=== PATIENT | female | born 1995 | race Caucasian/White ===

== ENCOUNTER → 2020-07-02 23:03 | Observation (INO) ==
[2020-07-02 22:27] LABS: Basophils % 0.5 %; Eosinophils # 0.1 K/mcL (0.0-0.6); Eosinophils % 0.8 %; Hematocrit 32.6 % (35.3-44.9); Hemoglobin 10.3 g/dL (11.5-15.4); Immature Granulocytes % 0.8 % (0-4); Lymphocytes # 1.7 K/mcL (0.6-4.6); Lymphocytes % 25.8 %; Mean Corpuscular HGB Conc 31.6 g/dL (31.6-35.5); Mean Corpuscular Hemoglobin 25.8 pg (28.0-33.3); Mean Corpuscular Volume 81.5 fL (83.0-100.0); Monocytes # 0.6 K/mcL (0.0-1.3); Monocytes % 8.9 %; Neutrophils # 4.1 K/mcL (1.6-8.9); Nucleated Red Blood Cells 0.5 /100 WBC (0); Platelet Count 162 K/mcL (140-400); Segmented Neutrophils % 63.2 %; White Blood Count 6.5 K/mcL (4.3-11.1)
[2020-07-02 22:36] LABS: Protein/Creatinine Ratio,Urine 0.19 mg/mg (0.00-0.20)
[2020-07-02 22:47] LABS: Alanine Aminotransferase 12 Units/L (7-52); Aspartate Amino Transferase 17 Units/L (13-39); BUN/Creatinine Ratio 12 (6-26); Blood Urea Nitrogen 6 mg/dL (6-20); Lactate Dehydrogenase 179 Units/L (140-271); Uric Acid 5.3 mg/dL (2.3-7.6); eGFR For African Americans > 60 (> 60); eGFR For Non-African Americans > 60 (> 60)
== END | disposition home or self-care (01) ==
LOC: 1NENULAB
PROVIDERS: ADMIT Obstetrics & Gynecology; ATTEND Obstetrics & Gynecology

== ENCOUNTER 2020-07-13 10:00 | Inpatient (IN) ==
[2020-07-13] MEDS ORDERED: Naloxone 0.4 MG/ML INJ IVP PRN ×2 (10:40→18:07)
[2020-07-13] MEDS ORDERED: Ondansetron 4 MG/2 ML VIAL IVP PRN ×2 (10:40→18:07)
[2020-07-13] MEDS ORDERED: Lidocaine 1% 20 ML MDV INFILT PRN (10:40)
[2020-07-13] MEDS ORDERED: Azithromycin 500 MG in 0.9 % Sodium Chloride 250 ML IVPB ONE (10:40)
[2020-07-13] MEDS ORDERED: *HR* FentaNYL (PF) 100 MCG/2 ML VIAL IVP PRN (10:40)
[2020-07-13] MEDS ORDERED: Metoclopramide 10 MG/2 ML VIAL IVP PRN ×2 (10:40→18:07)
[2020-07-13] MEDS ORDERED: Famotidine 20 MG/2 ML VIAL IVP PRN (10:40)
[2020-07-13] MEDS ORDERED: Oxytocin 20 units/ LR 1000 mL 20 UNIT/1,000 ML BAG IVC ONE (11:08)
[2020-07-13] MEDS ORDERED: Metoclopramide 10 MG/2 ML VIAL IVP ONE (11:08)
[2020-07-13] MEDS ORDERED: Famotidine 20 MG/2 ML VIAL IVP ONE (11:08)
[2020-07-13] MEDS ORDERED: CeFAZolin 2,000 MG/50 ML BAG IVPB ONE (11:08)
[2020-07-13] MEDS ORDERED: Ringers Solution, Lactated 1,000 ML IVC SCH ×2 (11:15→18:07)
[2020-07-13] MEDS: Ringers Solution, Lactated 1,000 ML IVC SCH ×2 (11:32→13:27)
[2020-07-13 11:40] LABS: Basophils % 0.4 %; Eosinophils % 0.5 %; Hematocrit 38.8 % (35.3-44.9); Hemoglobin 12.2 g/dL (11.5-15.4); Immature Granulocytes % 0.5 % (0-4); Lymphocytes # 1.5 K/mcL (0.6-4.6); Lymphocytes % 20.4 %; Mean Corpuscular HGB Conc 31.4 g/dL (31.6-35.5); Mean Corpuscular Hemoglobin 26.1 pg (28.0-33.3); Mean Corpuscular Volume 82.9 fL (83.0-100.0); Mean Platelet Volume 10.8 fL (9.4-12.4); Monocytes # 0.6 K/mcL (0.0-1.3); Monocytes % 7.8 %; Neutrophils # 5.2 K/mcL (1.6-8.9); Platelet Count 152 K/mcL (140-400); Red Blood Count 4.68 M/mcL (3.82-4.97); Red Cell Distribution Width 18.5 % (11.5-14.5); Segmented Neutrophils % 70.4 %; White Blood Count 7.4 K/mcL (4.3-11.1)
[2020-07-13 11:49] LABS: Amphetamine Screen,Urine Negative ng/mL (Cutoff=1000); Barbiturate Screen,Urine Negative ng/mL (Cutoff=200); Benzodiazepines Screen,Urine Negative ng/mL (Cutoff=200); Cannabinoid Screen,Urine Negative ng/mL (Cutoff = 50); Cocaine Screen,Urine Negative ng/mL (Cutoff= 300); Opiate Screen,Urine Negative ng/mL (Cutoff=300); Phencyclidine Screen,Urine Negative ng/mL (Cutoff=25)
[2020-07-13] MEDS ORDERED: *HR* Promethazine 25 MG/ML VIAL IVP PRN (12:09)
[2020-07-13] MEDS ORDERED: *HR* Labetalol 20 MG/4 ML SYRINGE IVP PRN (12:09)
[2020-07-13] MEDS ORDERED: *HR* HYDROmorphone PF 0.5 MG/0.5 ML SYRINGE IVP PRN (12:09)
[2020-07-13] MEDS ORDERED: *HR* FentaNYL (PF) 100 MCG/2 ML VIAL ONE (12:50)
[2020-07-13] MEDS ORDERED: *HR* Midazolam HCl 2 MG/2 ML VIAL ONE (12:50)
[2020-07-13] MEDS ORDERED: *HR* Morphine Sulfate/PF 10 MG/10 ML AMPUL ONE (12:50)
[2020-07-13] MEDS ORDERED: Ringers Solution, Lactated 1,000 ML ONE (12:51)
[2020-07-13] MEDS ORDERED: EPHEDrine 50 MG/ML VIAL ONE (12:51)
[2020-07-13] MEDS ORDERED: Dexamethasone 4 MG/ML VIAL ONE (12:53)
[2020-07-13] MEDS ORDERED: Ondansetron 4 MG/2 ML VIAL ONE (12:53)
[2020-07-13 13:34] LABS: Alanine Aminotransferase 13 Units/L (7-52); Aspartate Amino Transferase 19 Units/L (13-39); BUN/Creatinine Ratio 9 (6-26); Blood Urea Nitrogen 6 mg/dL (6-20); Lactate Dehydrogenase 232 Units/L (140-271); Uric Acid 6.2 mg/dL (2.3-7.6); eGFR For African Americans > 60 (> 60); eGFR For Non-African Americans > 60 (> 60)
[2020-07-13] MEDS ORDERED: Ketorolac 30 MG/ML VIAL ONE (13:39)
[2020-07-13 13:46] LABS: Creatinine,Urine 147 mg/dL; Protein/Creatinine Ratio,Urine 0.14 mg/mg (0.00-0.20)
[2020-07-13] MEDS ORDERED: *HR* Oxytocin 10 UNIT/ML VIAL IM ONE ×2 (14:23→14:25)
[2020-07-13] MEDS ORDERED: Simethicone 80 MG TAB.CHEW PO PRN (18:07)
[2020-07-13] MEDS ORDERED: *HR* OxyCODONE/APAP 5/325 TABLET PO PRN (18:07)
[2020-07-13] MEDS ORDERED: Sennosides 8.6 MG TABLET PO PRN (18:07)
[2020-07-13] MEDS ORDERED: Rho Immune Globulin 1,500 UNIT SYRINGE IM ONE (18:07)
[2020-07-13] MEDS ORDERED: *HR* OxyCODONE/APAP 10/325 TABLET PO PRN (18:07)
[2020-07-13] MEDS: Ibuprofen 600 MG TABLET PO PRN (18:37)
[2020-07-13] MEDS: cephALEXin 500 MG CAPSULE PO SCH (20:10)
[2020-07-13] MEDS: metroNIDAZOLE 500 MG TABLET PO SCH (20:10)
[2020-07-13] MEDS: Oxytocin 20 units/ LR 1000 mL 20 UNIT/1,000 ML BAG IVC SCH (23:29)
[2020-07-13] MEDS: Acetaminophen 325 MG TABLET PO SCH (23:35)
[2020-07-14] MEDS: Ibuprofen 600 MG TABLET PO PRN ×4 (02:04→20:04)
[2020-07-14] MEDS ORDERED: Ringers Solution, Lactated 500 ML IVC ONE (02:13)
[2020-07-14] MEDS: Prenatal Vit/FA 1 EACH TABLET PO SCH (07:58)
[2020-07-14] MEDS: metroNIDAZOLE 500 MG TABLET PO SCH ×3 (07:58→20:03)
[2020-07-14] MEDS: Acetaminophen 325 MG TABLET PO SCH ×3 (07:59→18:04)
[2020-07-14] MEDS: Oxytocin 20 units/ LR 1000 mL 20 UNIT/1,000 ML BAG IVC SCH (08:07)
[2020-07-14] MEDS ORDERED: NON-FORMULARY MEDICATION 1 EACH EACH (Ferrous Sulfate 1 TAB) PO SCH (09:00)
[2020-07-14] MEDS ORDERED: NON-FORMULARY MEDICATION 1 EACH EACH (Prenatal Caplet 1 TAB) PO SCH (09:00)
[2020-07-14 09:15] LABS: Basophils % 0.2 %; Eosinophils % 0.1 %; Hematocrit 30.5 % (35.3-44.9); Immature Granulocytes % 0.6 % (0-4); Lymphocytes % 22.6 %; Mean Corpuscular HGB Conc 31.5 g/dL (31.6-35.5); Mean Corpuscular Hemoglobin 25.9 pg (28.0-33.3); Mean Corpuscular Volume 82.2 fL (83.0-100.0); Mean Platelet Volume 10.8 fL (9.4-12.4); Monocytes # 0.7 K/mcL (0.0-1.3); Monocytes % 7.7 %; Platelet Count 130 K/mcL (140-400); Red Blood Count 3.71 M/mcL (3.82-4.97); Red Cell Distribution Width 18.2 % (11.5-14.5); Segmented Neutrophils % 68.8 %; White Blood Count 8.7 K/mcL (4.3-11.1)
[2020-07-14] MEDS: cephALEXin 500 MG CAPSULE PO SCH ×4 (09:23→20:02)
[2020-07-14 09:24] LABS: Hemoglobin 9.6 g/dL (11.5-15.4)
[2020-07-14] MEDS ORDERED: Rho Immune Globulin 1,500 UNIT SYRINGE IM ONE (13:58)
[2020-07-15] MEDS: Ibuprofen 600 MG TABLET PO PRN ×2 (02:15→07:46)
[2020-07-15] MEDS: metroNIDAZOLE 500 MG TABLET PO SCH (07:38)
[2020-07-15] MEDS: Prenatal Vit/FA 1 EACH TABLET PO SCH (07:38)
[2020-07-15] MEDS: cephALEXin 500 MG CAPSULE PO SCH (07:39)
[2020-07-15 07:45] VITALS: BP 127/85
[2020-07-15] MEDS ORDERED: FLU Vac QV 20-21 (6Month+)/PF 0.5 ML SYRINGE IM ONE (10:55)
== END 2020-07-15 14:00 | disposition home or self-care (01) | DRG 787 ==
LOC: 1NENULAB 10:05 → 1NENUOBS 17:41
PROVIDERS: ADMIT Obstetrics & Gynecology; ATTEND Obstetrics & Gynecology